=== PATIENT | male | born 1970 | race Caucasian/White ===

== ENCOUNTER 2025-02-15 10:28 | Outpatient (REF) | payer OTHER, SELFPAY ==
--- NOTE | ~2025-02-15 | XR_ITS ---
EXAMINATION: XR HAND 3 OR MORE VIEWS LEFT HISTORY: M79.642 - Pain in left hand COMPARISON: There are no prior studies available for comparison. FINDINGS: Three views of the left hand are submitted. Osseous mineralization is normal. There is a fracture of the distal tuft of the ring finger. An additional cortical defect is seen involving the head of the middle phalanx of the ring finger, likely posttraumatic in nature. The joint spaces are preserved. Soft tissue injury of the distal 4th finger is seen. There are soft tissue densities adjacent to the distal phalanx could represent foreign bodies. XR/XR hand LT min 3V IMPRESSION: Fracture of the distal tuft of the ring finger. Cortical defect involving the head of the middle phalanx of the ring finger which is also likely posttraumatic in nature. Possible soft tissue foreign bodies. Electronically signed by: Johnnie Delgadillo MD 02/15/2025 11:45 AM EDT
== END 2025-02-15 10:29 | disposition home or self-care (01) ==
LOC: HO.HOSX 10:28
DX: S62.635B Displaced fracture of distal phalanx of left ring finger, initial encounter for open fracture (principal); M79.642 Pain in left hand; W31.2XXA Contact with powered woodworking and forming machines, initial encounter
CPT/HCPCS: 73130

== ENCOUNTER 2025-02-15 10:28 | Outpatient (AMB) | payer OTHER, SELFPAY ==
--- NOTE | 2025-02-15 10:35 | A.OFFVIS_ITS ---
Vital Signs 02/15/25 10:37 Height 5 ft 6 in Weight 170 lb BMI 27.4 Handedness Right Intake Visit Reasons: UC f/u LT RF laceration no damage to nail Intake Note: Good is a 54 year old right hand dominant male, new patient, who presents today for an ED follow up evaluation status post left ring finger laceration with a saw, DOI: 02/09/25. Patient went in to a walk in stating he was using a cordless electric saw when it slipped out of his hands slicing through the lateral aspect of his left ring finger. Denies numbness, tingling. Patient is taking Tylenol with some relief. He is using a finger splint he bought at the store. Patient states the urgent care he went to did not do much for him besides letting him know he needed to see an orthopedist. 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 Neuro: Normal sensation of the tips of all digits of the left hand at this time Vascular: Cap refill brisk Pain: Tenderness to palpation noted of the distal phalanx and the distal aspect of the middle phalanx of the left ring finger in the area of laceration ROM: Patient is able to flex and extend at all joints of the left hand, particularly of the left ring finger Skin: There is a large, approximately 7-8 cm in length laceration noted of the ulnar aspect of the left ring finger extending into the tip of the left ring finger No sutures in place at this time No evidence of infection, however there is significant maceration General: No ecchymosis, erythema, or evidence of infection. Psych: Appears grossly normal Affect normal Attitude cooperative Office Procedures AMB Fracture Care Fracture Billing Code: Fracture Billing Code Results Reviewed Results Reviewed: X-rays obtained in the office today and independently reviewed by me, Jagdish Heath PA-C, demonstrate minimally displaced fracture of the distal phalanx of the left ring finger as well as an area of the distal aspect of the middle phalanx that appears as if the saw removed part of the bone. Assessment & Plan Assessment & Plan (1) Open fracture of phalanx of left ring finger: Code(s): S62.605B - Fracture of unspecified phalanx of left ring finger, initial encounter for open fracture Category: Medical Plan 1. Open fractures of distal and middle phalanx of left ring finger Date of injury 02/10/2025 Patient is educated about this injury Patient is educated about the typical treatment course, which in the case of nondisplaced open fractures of the fingers, typically involves antibiotic therapy, immobilization, and close follow-up to ensure no signs or symptoms of infection Patient is educated that there is unfortunately no wound closure indicated at this time, as his injury was almost one-week ago and it presents a significant infection risk to put sutures in at this time Patient should be changing his dressings daily, should not be getting the laceration sites wet Splint to be worn at all times Patient is sent a 10 day course of Augmentin for prevention of antibiotics Patient understands this in his amenable to this plan Follow-up next week with repeat x-rays for reassessment, sooner with any acute concerns Orders: Orders XR hand LT min 3V Today M79.642 - Pain in left hand Medications: New amoxicillin-pot clavulanate 875-125 mg 1 tab PO BID 20 tabs 0RF 10 days Coding Level of Care Code New Pt Level 3 (52424) Diagnoses Open fracture of phalanx of left ring finger S62.605B CPT Codes Fracture Care - Fracture Billing Code: Fracture Billing Code ([id number])
[2025-02-15 10:37] VITALS: BMI 27.4
--- OUTSIDE RECORDS SUMMARY | 2025-02-15 11:07 | XMS_ITS ---
Author Name [facility] Organization Unknown Care Team Organization Name Specialty Phone Email Start Date End Da maddy [facility] FRANNY RAMOS Primary Care 11/12/2022 02/24/20 24
--- OUTSIDE RECORDS SUMMARY | 2025-02-15 11:07 | XMS_ITS | Patient Health Record ---
Author Organization [facility] [address] Address [address] [place] [address] Care Team Providers Care Agent Licensing Clerk Name Role Phone CHINA URIARTE Unavailable [phone] Allergies No Known Allergies Reason For Referral No Information Medications Medication SIG (Take, Route, Frequency, Duration) Notes Start Date End Date Status lamoTRIgine 100 MG Oral; Duration: 30 Days Active buPROPion HCl ER (XL) 300 MG Oral; Duration: 30 Days Acti ve Lurasidone HCl 40 MG Oral; Duration: 30 Days Active Nystatin-Triamcinolone 287422-7.1 UNIT/GM APPLY CREAM EXTERNALLY TO AFFECTED AREA TWICE DAILY FOR 14 DAYS External; Duration: 14 Days Active Social History Tobacco Use: Social History Observation Description Date Details (start date - stop date) Never Smoker NA - NA Tobacco Use/Smoking Question Answer Notes Are you a nonsmoker Alcohol Screen (Audit-C) Question Answer Notes Did you have a drink containing alcohol in the p ast year? No Points 0 Interpretation Negative Problems Problem Type SNOMED Code ICD Code Onset Dates Problem Status W/U Status Risk Notes Problem Vitamin D deficiency (55336741) Vitamin D deficiency, unspecified (E55.9) Active confirmed Problem Hyperlipidaemia (46667192) Hyperlipidemia, unspecified hyperlipidemia type (E78.5) Active confirmed Problem Hypothyroidism (96392056) Hypothyroidism, unspecified type (E03.9) Active confirmed Problem Atrial fibrillation (63481779) PAF (paroxysmal atrial fibrillation) (I48.0) Active confirmed Plan Of Treatment Pending Test Test Name Order Date 25OH VITAMIN D 07/09/2023 CBC (COMPLETE BLOOD COUNT) 07/09/2023 COMPREHENSIVE METABOLIC PANEL 07/09/2023 HEMOGLOBIN A1C 07/09/2023 LIPID PANEL 07/09/2023 TSH 07/09/2023 URINALYSIS W/REFLEX CULTURE 07/09/2023 Insurance Providers Payer Name Payer Address Payer Phone Subscriber Number Group Number Insured Name Patient Relationship to Insured Coverage Start Date Coverage End Date Yadi [address] [place] [address] [id number] Good Kim Self - patient is the insured 2 Medical (General) History Medical History History ICD Code bipolar disorder hepatitis C
--- OUTSIDE RECORDS SUMMARY | 2025-02-15 11:07 | XMS_ITS | Clinical Summary ---
Author Organization 175 [facility] Address [address] [place] [address] Phone Care Team Providers Care Programming Specialist Name Role Phone Janes Navarro MD Primary Care Provider [phone] Allergies No known active allergies Medications bisacodyL (DULCOLAX) 5 mg EC tablet Take 2 tablets by mouth right before your first dose of liquid prep. 04/27/20 23 Active sucralfate (CARAFATE) 100 mg/mL suspension Take 10 mL by mouth 4 times daily (before meals and nightly). 11/04/19 19 Active tamsulosin (FLOMAX) 0.4 mg 24 hr capsule Take 0.4 mg by mouth daily. Take 30 mins after same meal every day. Active lamoTRIgine (LaMICtal) 150 mg tablet Take 150 mg by mouth daily. Active buPROPion (WELLBUTRIN) 100 mg tablet Take 100 mg by mouth daily. Active lurasidone (LATUDA) 20 mg tablet Take by mouth. Activ e ledipasvir-sof osbuvir 90-400 mg tablet Take 1 tablet by mouth 1 (one) time each day. 11/15/19 19 Active polyethylene glycol (Golytely) 236-22.74-6.74 -5.86 gram solution Take 4L by mouth once for one dose. May substitue any PEG. Starting at 6PM the night before your procedure drink 1 8oz glasses at your own pace until you complete half of the gallon. Finish 2nd half of the gallon 5 hours before your procedure. 4000 mL 05/19/20 24 Active bisacodyL (DULCOLAX) 5 mg EC tablet Take 2 tablets by mouth right before beginning bowel prep. See instructions provided by the office 2 tablet 05/19/20 24 Active gabapentin (NEURONTIN) 100 mg capsule Take 1 capsule (100 mg total) by mouth. 05/19/20 24 Active omeprazole (PriLOSEC) [address] capsule Take 1 capsule by mouth once daily 30 capsule 02/02/20 25 Active omeprazole (PriLOSEC) [address] capsule Take 1 capsule by mouth once daily 30 capsule 1 11/21/19 25 025 Discontinued Active Problems Problem Noted Date Diagnosed Date Gastroesophageal reflux disease without esophagi tis 10/02/2018 Vision abnormalities 10/02/2018 Bipolar affective disorder (CMS/HCC V24, CMS/HCC V28) 08/07/2018 Overview (04/23/2024): [facility] Chronic hepatitis C without hepatic coma (CMS/HCC V24, CMS/HCC V28) 08/07/2018 Overview (04/23/2024): Chronic Hepatitis C, Genotype 1B. Treatment started 11/14/18 with Harvoni 90-40 mg tabs. Take 1 tab daily for 12 weeks. End date 02/06/19. SVR achieved 05/08/19 Immunizations Name Administration Dates Next Due Hepatitis A-Hepatitis B Adul t (Twinrix) 18yo and older 05/08/2019,12/12/2018,09/26/2018 Surgical History Surgery Date Site/Laterality Comments OTHER SURGICAL HISTORY PROCEDURE: SC BIOPSY LIVER NEEDLE PERCUTANEOUS; COMMENT: in NASAL SEPTUM SURGERY PROCEDURE: SC REPAIR NASAL SEPTAL PERFORATIONS OTHER SURGICAL HISTORY 03/25/2015 PROCEDURE: SC ICAR CATH ABLATION DISCRETE MECHANISM ARRHYTHMIA; COMMENT: cardiac ablation, & 07/2013 ESOPHAGOGASTRODUODENOSCOPY Medical History Medical History Date Comments Bipolar affective disorder ( CMS/HCC V24, CMS/HCC V28) 08/07/2018 DX:Bipolar affective disorde r (HCC) Chronic hepatitis C without hepatic coma (CMS/HCC V24, CMS/HCC V28) 08/07/2018 DX:Chronic hepatitis C without hepatic coma (HCC) History of ventricular tachycardia 08/07/2018 DX:History of ventricular tachycardia; COMMENT: S/p cardiac ablation at [facility], surgeon was Dr Medina Hepatitis C Dysphagia GERD (gastroesophageal reflux disease) Bipolar 2 disorder ([facility]/HCC V24, [facility]/HCC V28) Family History Medical History Relation Name Comments No Known Problems Father No Known Problems Mother Relation Name Status Comments Father Alive Mother Alive Social History Tobacco Use Types Packs/Day Years Used Date Smoking Tobacco: Never Smokeless Tobacco: Never Alcohol Use Standard Drinks/Week Comments No 0 (1 standard drink = 0.6 oz pur e alcohol) Interpersonal Safety Answer Date Record ed Physical Abuse 06/02/2024 Verbal Abuse 06/02/2024 Sex and Gender Information Value Date Recorded Sex Assigned at Male 06/02/2024 11:11 AM EST Legal Sex Male 8:19 PM EST Gender Identity Male 06/02/2024 11:11 AM EST Sexual Orientation Straight 06/02/2024 11 :11 AM EST Obstetrics History Last Filed Vital Signs Vital Sign Reading Time Taken Comments Blood Pressure 133/90 06/02/2024 2:57 PM EST Pulse 71 06/02/2024 2:57 PM EST Temperature 35.8 C (96.4 F) 06/02/2024 1:32 PM EST Respiratory Rate 22 06/02/2024 2:57 PM EST Oxygen Saturation 100% 06/02/2024 2:57 PM EST Inhaled Oxygen Concentration - - Weight 74.4 kg (164 lb) 09/07/2024 2:58 PM EST Height 167.6 cm (5' 5.98 ) 09/07/2024 2:58 PM ES T Body Mass Index 26.48 09/07/2024 2:58 PM EST Plan of Treatment Upcoming Encounters Date Type Department Care Team (Late st Contact Info) Description 03/10/2025 2:30 PM EDT Office Visit Orthopedic Surgery [place] [id number] [phone] Rob Fisher, SANCHEZ [address] [address] Health Maintenance Due Date Last Done Comments DTaP,Tdap,and Td Vaccines (1 - Tdap) 1991 Pneumococcal Vaccine: 50+ Years (1 of 2 - PCV) 1991 Zoster Vaccines (1 of 2) 2022 Social Influencers of Health Screening 06/09/2022 COVID-19 Vaccine (1 - 2023-2 5 season) 2024 Depression Screening 07/08/2024 Influenza Vaccine (#1) 2025 Cholesterol Screening (Lipid Panel) 07/17/2029 07/17/2024, 08/27/2022 Colorectal Cancer Screening: Colonoscopy 06/02/2031 06/02/2024 HIV Screening Completed 08/27/2018 Hepatitis C Screening Completed 09/26/2018 Hepatitis A Vaccines Aged Out 05/08/2019, 12/12/2018, 09/26/2018 No longer eligible based on patient's age to complete this topic Hepatitis B Vaccines Completed 05/08/2019, 12/12/2018, 09/26/2018 HIB Vaccines Aged Out No longer eligi ble based on patient's age to complete this topic HPV Vaccines Aged Out No longer eligi ble based on patient's age to complete this topic IPV Vaccines Aged Out No longer eligi ble based on patient's age to complete this topic MMR Vaccines Aged Out No longer eligi ble based on patient's age to complete this topic Meningococcal ACWY Vaccine Aged Out N o longer eligible based on patient's age to complete this topic Meningococcal B Vaccine Aged Out No l onger eligible based on patient's age to complete this topic RSV Immunization Patients Under 20 months Aged Out No longer eligible b ased on patient's age to complete this topic Varicella Vaccines Aged Out No longer eligible based on patient's age to complete this topic Procedures Procedure Name Priority Date/Time Associated Diagnosis Comments LIPID PANEL WITH REFLEX TO DIRECT LDL Routine 07/17/2024 10:35 AM EST Drug therapy COLONOSCOPY Routine 06/02/2024 2:36 PM EST Dysphagia Colon cancer screening HEPATITIS C SCREENING Routine 09/26/2018 HIV SCREENING Routine 08/27/2018 from Last 3 Months or Most Recently Relevant to Health Maintenance Results * (ABNORMAL) Lipid panel with reflex to direct LDL (07/17/2024 10:35 AM EST) Cholesterol 214(H) 0 - 200 mg/dL LAB CHEMISTRY METHOD 07/17/2024 2:[address] [facility] Triglycerides 232(H) 0 - 150 mg/dL LAB CHEMISTRY METHOD 07/17/2024 2:31 PM [facility] HDL 42 >=40 mg/dL LAB CHEMISTRY METHOD 07/17/2024 2:31 PM [facility] LDL Calculated 126(H) 0 - 100 mg/dL LAB CHEMISTRY METHOD 07/17/2024 2:[address] [facility] VLDL Cholesterol Mark 46.4 mg/dL LAB CHEMISTRY METHOD 07/17/2024 2:31 PM [facility] Non HDL Chol. (LDL+VLDL) 172(H) <145 mg/dL LAB CHEMISTRY METHOD 07/17/2024 2:31 PM [facility] Chol/HDL Ratio 5.1(H) 0.0 - 4.4 LAB CHEMISTRY METHOD 07/17/2024 2:[address] [facility] Blood Venous blood specimen / Unknown Venipuncture / Unknown 07/17/2024 10:35 AM EST 07/17/2024 10:35 AM EST Eder Ron MD LAB BLOOD ORDERABLES Final R esult [facility] [address] [place] [address], * COLONOSCOPY Anesthesia - [facility] (06/02/2024 2:36 PM EST) Anatomical Region Laterality Modality Endoscopy 06/02/2024 2:1 1 PM EST Impressions 06/02/2024 2:36 PM EST - One 5 mm polyp in the descending colon, removed with a cold snare. Resected and retrieved. - The examination was otherwise normal on direct and retroflexion views. Recommendation: - - Discharge patient to home. - High fiber diet. - Continue present medications. - Await pathology results. - Repeat colonoscopy for surveillance based on pathology results. Narrative 06/02/2024 2:36 PM EST [facility] GI Patient Name: Good Kim Procedure Date: 06/02/2024 2:11 PM Date of : 1970 Age: 54 Gender: Male Note Status: Finalized Attending MD: Shannon Flores DO, [id number] Procedure Date No Time: 06/02/2024 Procedure: Colonoscopy Indications: Screening for colorectal malignant neoplasm Providers: Shannon Flores DO Referring MD: Janes Navarro MD Medicines: Monitored Anesthesia Care Complications: No immediate complications. Estimated blood loss: Minimal. Estimated Blood Loss: Estimated blood loss was minimal. Procedure: Pre-Anesthesia Assessment: - - Prior to the procedure, a History and Physical was performed, and patient medications and allergies were reviewed. The patient is competent. The risks and benefits of the procedure and the sedation options and risks were discussed with the patient. All questions were answered and informed consent was obtained. Patient identification and proposed procedure were verified by the physician, the nurse, the anesthesiologist, the bander hand and the dental technician in the pre-procedure area in the endoscopy suite. Mental Status Examination: alert and oriented. Airway Examination: normal oropharyngeal airway and neck mobility. Respiratory Examination: clear to auscultation. CV Examination: normal. Prophylactic Antibiotics: The patient does not require prophylactic antibiotics. Prior Anticoagulants: The patient has taken no anticoagulant or antiplatelet agents. ASA Grade Assessment: III - A patient with severe systemic disease. After reviewing the risks and benefits, the patient was deemed in satisfactory condition to undergo the procedure. The anesthesia plan was to use monitored anesthesia care (MAC). Immediately prior to administration of medications, the patient was re-assessed for adequacy to receive sedatives. The heart rate, respiratory rate, oxygen saturations, blood pressure, adequacy of pulmonary ventilation, and response to care were monitored throughout the procedure. The physical status of the patient was re-assessed after the procedure. - - Prior to the procedure, a History and Physical was performed, and patient medications and allergies were reviewed. The patient is competent. The risks and benefits of the procedure and the sedation options and risks were discussed with the patient. All questions were answered and informed consent was obtained. Patient identification and proposed procedure were verified by the physician, the nurse, the anesthesiologist, the bander hand and the dental technician in the pre-procedure area in the endoscopy suite. Mental Status Examination: alert and oriented. Airway Examination: normal oropharyngeal airway and neck mobility. Respiratory Examination: clear to auscultation. CV Examination: normal. Prophylactic Antibiotics: The patient does not require prophylactic antibiotics. Prior Anticoagulants: The patient has taken no anticoagulant or antiplatelet agents. ASA Grade Assessment: II - A patient with severe systemic disease. After reviewing the risks and benefits, the patient was deemed in satisfactory condition to undergo the procedure. The anesthesia plan was to use monitored anesthesia care (MAC). Immediately prior to administration of medications, the patient was re-assessed for adequacy to receive sedatives. The heart rate, respiratory rate, oxygen saturations, blood pressure, adequacy of pulmonary ventilation, and response to care were monitored throughout the procedure. The physical status of the patient was re-assessed after the procedure. After I obtained informed consent, the scope was passed under direct vision. Throughout the procedure, the patient's blood pressure, pulse, and oxygen saturations were monitored continuously.The Colonoscope was introduced through the anus and advanced to the cecum, identified by appendiceal orifice and ileocecal valve. The colonoscopy was performed without difficulty. The patient tolerated the procedure well. The quality of the bowel preparation was good. Findings: The perianal and digital rectal examinations were normal. A 5 mm polyp was found in the descending colon. The polyp was sessile. The polyp was removed with a cold snare. Resection and retrieval were complete. Estimated blood loss was minimal. The exam was otherwise without abnormality on direct and retroflexion views. Procedure Code(s): --- Professional --- 35605, Colonoscopy, flexible; with removal of tumor(s), polyp(s), or other lesion(s) by snare technique Diagnosis Code(s): --- Professional --- Z12.11, Encounter for screening for malignant neoplasm of colon D12.4, Benign neoplasm of descending colon CPT copyright 2020 [employer]. All rights reserved. The codes documented in this report are preliminary and upon occup ther review may be revised to meet current compliance requirements. SHANNON Flores DO 06/02/2024 2:36:33 PM This report has been signed electronically.Shannon Flores DO Number of Addenda: 0 Note Initiated On: 06/02/2024 2:11 PM Scope Withdrawal Time: 0 hours 6 minutes 12 seconds Scope In: 2:25:23 PM Scope Out: 2:35:02 PM Endoscopy Department at [facility] - [address] [place] [id number] Procedure Note Shannon Flores DO - 06/02/2024 [facility] GI Patient Name: Good Kim Procedure Date: 06/02/2024 2:11 PM Date of : 1970 Age: 54 Gender: Male Note Status: Finalized Attending MD: Shannon Flores DO, [id number] Procedure Date No Time: 06/02/2024 Procedure: Colonoscopy Indications: Screening for colorectal malignant neoplasm Providers: Shannon Flores DO Referring MD: Janes Navarro MD Medicines: Monitored Anesthesia Care Complications: No immediate complications. Estimated blood loss: Minimal. Estimated Blood Loss: Estimated blood loss was minimal. Procedure: Pre-Anesthesia Assessment: - - Prior to the procedure, a History and Physicalwas performed, and patient medications and allergieswere reviewed. The patient is competent. The risks and benefits of the procedure and the sedation optionsand risks were discussed with the patient. Allquestions were answered and informed consent was obtained. Patient identification and proposed procedure were verified by the physician, the nurse, the anesthesiologist, the bander hand and thetechnician in the pre-procedure area in the endoscopy suite. Mental Status Examination: alert and oriented.Airway Examination: normal oropharyngeal airway and neck mobility. Respiratory Examination: clear to auscultation. CV Examination: normal. Prophylactic Antibiotics: The patient does not requireprophylactic antibiotics. Prior Anticoagulants: The patient has taken no anticoagulant or antiplatelet agents. ASA Grade Assessment: III - A patient with severesystemic disease. After reviewing the risks and benefits,the patient was deemed in satisfactory condition to undergo the procedure. The anesthesia plan was touse monitored anesthesia care (MAC). Immediately priorto administration of medications, the patient was re-assessed for adequacy to receive sedatives. The heart rate, respiratory rate, oxygen saturations, blood pressure, adequacy of pulmonary ventilation,and response to care were monitored throughout the procedure. The physical status of the patient was re-assessed after the procedure. - - Prior to the procedure, a History and Physicalwas performed, and patient medications and allergieswere reviewed. The patient is competent. The risks and benefits of the procedure and the sedation optionsand risks were discussed with the patient. Allquestions were answered and informed consent was obtained. Patient identification and proposed procedure were verified by the physician, the nurse, the anesthesiologist, the bander hand and thetechnician in the pre-procedure area in the endoscopy suite. Mental Status Examination: alert and oriented.Airway Examination: normal oropharyngeal airway and neck mobility. Respiratory Examination: clear to auscultation. CV Examination: normal. Prophylactic Antibiotics: The patient does not requireprophylactic antibiotics. Prior Anticoagulants: The patient has taken no anticoagulant or antiplatelet agents. ASA Grade Assessment: II - A patient with severesystemic disease. After reviewing the risks and benefits,the patient was deemed in satisfactory condition to undergo the procedure. The anesthesia plan was touse monitored anesthesia care (MAC). Immediately priorto administration of medications, the patient was re-assessed for adequacy to receive sedatives. The heart rate, respiratory rate, oxygen saturations, blood pressure, adequacy of pulmonary ventilation,and response to care were monitored throughout the procedure. The physical status of the patient was re-assessed after the procedure. After I obtained informed consent, the scope was passed under direct vision. Throughout theprocedure, the patient's blood pressure, pulse, and oxygen saturations were monitored continuously.The Colonoscope was introduced through the anus and advanced to the cecum, identified by appendiceal orifice and ileocecal valve. The colonoscopy was performed without difficulty. The patient tolerated the procedure well. The quality of the bowel preparation was good. Findings: The perianal and digital rectal examinations were normal. A 5 mm polyp was found in the descending colon. The polyp was sessile. The polyp was removed with acold snare. Resection and retrieval were complete. Estimated blood loss was minimal. The exam was otherwise without abnormality ondirect and retroflexion views. Procedure Code(s): --- Professional --- 29989, Colonoscopy, flexible; with removal of tumor(s), polyp(s), or other lesion(s) by snare technique Diagnosis Code(s): --- Professional --- Z12.11, Encounter for screening for malignantneoplasm of colon D12.4, Benign neoplasm of descending colon CPT copyright 2020 [employer]. All rights reserved. The codes documented in this report are preliminary and upon occup ther reviewmay be revised to meet current compliance requirements. SHANNON Flores DO 06/02/2024 2:36:33 PM This report has been signed electronically.Shannon Flores DO Number of Addenda: 0 Note Initiated On: 06/02/2024 2:11 PM Scope Withdrawal Time: 0 hours 6 minutes 12 seconds Scope In: 2:25:23 PM Scope Out: 2:35:02 PM Endoscopy Department at [facility] - [address] [place] [id number] IMPRESSION: - One 5 mm polyp in the descending colon, removed with a cold snare. Resected and retrieved. - The examination was otherwise normal on directand retroflexion views. Recommendation: - - Discharge patient to home. - High fiber diet. - Continue present medications. - Await pathology results. - Repeat colonoscopy for surveillance based on pathology results. Shannon Flores DO GI~PROCEDURE ORDERABLES Final Re sult * Hepatitis C Screening (09/26/2018) Hepatitis C Screening abstracted Historical Provider HEALTH MAINTENANCE Final Result * HIV Screening (08/27/2018) HIV Screening abstracted Historical Provider HEALTH MAINTENANCE Final Result from Last 3 Months or Most Recently Relevant to Health Maintenance Insurance [employer] Care Teams Programming Specialist Relationship Specialty Start Date End Date Janes Navarro MD [address] [address] PCP - General Internal Medicine 07/11/18
== END 2025-02-15 11:41 | disposition home or self-care (01) ==
LOC: HO.HOS 10:29
DX: S62.635B Displaced fracture of distal phalanx of left ring finger, initial encounter for open fracture (principal)
CPT/HCPCS: 99203

== ENCOUNTER → 2025-02-15 10:56 | Outpatient (BNV) | payer OTHER, SELFPAY | PROVIDERS: Visit Provider Radiology Diagnostic Radiology | DX: M79.642 Pain in left hand (principal) | CPT/HCPCS: 73130 ==

== ENCOUNTER 2025-02-23 08:17 | Outpatient (AMB) | payer OTHER, SELFPAY ==
[2025-02-23 08:35] VITALS: BMI 27.4
--- NOTE | 2025-02-23 08:35 | A.OFFVIS_ITS ---
Vital Signs 02/23/25 08:35 Height 5 ft 6 in Weight 170 lb BMI 27.4 Intake Visit Reasons: UC f/u LT RF laceration no damage to nail w/ XR Intake Note: Good is a 54 year old right hand dominant male who presents today for a wound check status post left ring finger laceration, DOI: 02/09/25. At his last visit, patient was informed he should be changing his dressings daily, keeping his laceration clean and dry. He was advised to wear splint at all times and to start antibiotic treatment. Today, patient reports he continues wearing the finger splint and taking antibiotics as prescribed. Denies numbness or tingling. Allergies No Known Allergies Allergy (Verified 02/23/25 08:40) HPI HPI UC f/u LT RF laceration no damage to nail w/ XR: Details: Good is a 54 year old right hand dominant male who presents today for a wound check status post left ring finger laceration, DOI: 02/09/25. At his last visit, patient was informed he should be changing his dressings daily, keeping his laceration clean and dry. He was advised to wear splint at all times and to start antibiotic treatment. Today, patient reports he continues wearing the finger splint and taking antibiotics as prescribed. Denies numbness or tingling. 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 Neuro: Normal sensation of the tips of all digits of the left hand at this time Vascular: Cap refill brisk Pain: Tenderness to palpation noted of the distal phalanx and the distal aspect of the middle phalanx of the left ring finger in the area of laceration ROM: Patient is able to flex and extend at all joints of the left hand, particularly of the left ring finger Skin: There is a large, approximately 7-8 cm in length laceration noted of the ulnar aspect of the left ring finger extending into the tip of the left ring finger No sutures in place at this time No evidence of infection, however there is significant maceration General: No ecchymosis, erythema, or evidence of infection. Psych: Appears grossly normal Affect normal Attitude cooperative Assessment & Plan Assessment & Plan (1) Open fracture of phalanx of left ring finger: Code(s): S62.605B - Fracture of unspecified phalanx of left ring finger, initial e ncounter for open fracture Category: Medical Plan 1. Open fractures of distal and middle phalanx of left ring finger Date of injury 02/10/2025 Patient is educated about this injury Patient is educated about the typical treatment course, which in the case of nondisplaced open fractures of the fingers, typically involves antibiotic therapy, immobilization, and close follow-up to ensure no signs or symptoms of infectione Patient should be changing his dressings daily, may wash laceration with soap and water in the sink of the shower, no under water Splint to be worn at all times Finish current course of antibiotics, no further therapy indicated at this time Patient understands this in his amenable to this plan Follow-up in 2 weeks with repeat x-rays for reassessment, sooner with any acute concerns Coding Level of Care Code Global (73383) Diagnoses Open fracture of phalanx of left ring finger S62.605B
--- OUTSIDE RECORDS SUMMARY | 2025-02-23 08:55 | XMS_ITS | Patient Health Record ---
Author Organization [facility] [address] Address [address] [place] [address] Care Team Providers Care Master Pilot Name Role Phone CHINA URIARTE Unavailable [phone] Allergies No Known Allergies Reason For Referral No Information Medications Medication SIG (Take, Route, Frequency, Duration) Notes Start Date End Date Status lamoTRIgine 100 MG Oral; Duration: 30 Days Active buPROPion HCl ER (XL) 300 MG Oral; Duration: 30 Days Acti ve Lurasidone HCl 40 MG Oral; Duration: 30 Days Active Nystatin-Triamcinolone 573623-9.1 UNIT/GM APPLY CREAM EXTERNALLY TO AFFECTED AREA [...] Status Risk Notes Problem Vitamin D deficiency (55271052) Vitamin D deficiency, unspecified (E55.9) Active confirmed Problem Hyperlipidaemia (90319363) Hyperlipidemia, unspecified hyperlipidemia type (E78.5) Active confirmed Problem Hypothyroidism (44439782) Hypothyroidism, unspecified type (E03.9) Active confirmed Problem Atrial fibrillation (70007805) PAF (paroxysmal atrial fibrillation) (I48.0) Active confirmed [...] Date Coverage End Date [employer] [address] [place] [address] [id number] Good Kim Self - patient is the insured 2 Medical (General) History Medical History History ICD Code bipolar disorder hepatitis C
--- OUTSIDE RECORDS SUMMARY | 2025-02-23 08:55 | XMS_ITS | Clinical Summary ---
Author Organization 175 [facility] Address [address] [place] [address] Phone Care Team Providers Care Commercial Shrimping Captain Name Role Phone Janes Navarro MD Primary Care Provider [phone] Allergies No known active allergies Medications bisacodyL [...] (04/23/2024): [facility] with [facility] Chronic hepatitis C without hepatic coma [...] Date Site/Laterality Comments OTHER SURGICAL HISTORY PROCEDURE: [place] BIOPSY LIVER NEEDLE PERCUTANEOUS; COMMENT: in NASAL SEPTUM SURGERY PROCEDURE: [place] REPAIR NASAL SEPTAL PERFORATIONS OTHER SURGICAL HISTORY 03/25/2015 PROCEDURE: [place] ICAR CATH ABLATION DISCRETE MECHANISM ARRHYTHMIA; COMMENT: [...] ventricular tachycardia; COMMENT: S/p cardiac ablation at [facility] X 2, surgeon was Dr Medina Hepatitis C Dysphagia GERD (gastroesophageal reflux disease) Bipolar 2 disorder ([facility]/HCC V24, [facility]/HCC V28) Family History Medical History Relation Name [...] PM EDT Office Visit Orthopedic Surgery - [place] [address] [address] Rob Fisher, SANCHEZ [address] [address] Health Maintenance Due Date Last Done Comments [...] LAB CHEMISTRY METHOD 07/17/2024 2:31 PM EST [facility] Triglycerides 232(H) 0 - 150 mg/dL LAB CHEMISTRY METHOD 07/17/2024 2:31 PM [facility] HDL 42 >=40 mg/dL LAB CHEMISTRY METHOD 07/17/2024 2:31 PM [facility] LDL Calculated 126(H) 0 - 100 mg/dL LAB CHEMISTRY METHOD 07/17/2024 2:31 PM EST [facility] VLDL Cholesterol Mark 46.4 mg/dL LAB CHEMISTRY METHOD 07/17/2024 2:31 PM [facility] Non HDL Chol. (LDL+VLDL) 172(H) <145 mg/dL LAB CHEMISTRY METHOD 07/17/2024 2:31 PM [facility] Chol/HDL Ratio 5.1(H) 0.0 - 4.4 LAB CHEMISTRY METHOD 07/17/2024 2:31 PM EST [facility] Blood Venous blood specimen / Unknown Venipuncture / Unknown 07/17/2024 10:35 AM EST 07/17/2024 10:35 AM EST Eder Ron MD LAB BLOOD ORDERABLES Final R esult [facility] [address] [place] [address], * COLONOSCOPY Anesthesia - [facility]; [facility] ENDOSCOPY (06/02/2024 2:36 PM EST) Anatomical Region [...] pathology results. Narrative 06/02/2024 2:36 PM EST [facility] Patient Name: Good Kim Procedure Date: 06/02/2024 2:11 PM Date of : 1970 Age: 54 Gender: Male Note Status: Finalized Attending MD: Shannon Flores DO, [id number] Procedure Date No Time: 06/02/2024 Procedure: Colonoscopy [...] the physician, the nurse, the anesthesiologist, the senior sourcing manager and the agriculture laboratory technician in the pre-procedure area in the [...] the physician, the nurse, the anesthesiologist, the senior sourcing manager and the agriculture laboratory technician in the pre-procedure area in the [...] retroflexion views. Procedure Code(s): --- Professional --- 70733, Colonoscopy, flexible; with removal of tumor(s), polyp(s), or other lesion(s) by snare technique Diagnosis Code(s): --- Professional --- Z12.11, Encounter for screening for malignant neoplasm of colon D12.4, Benign neoplasm of descending colon CPT copyright 2020 [employer]. All rights reserved. The codes documented in this report are preliminary and upon costing manager review may be revised to meet current compliance requirements. SHANNON Flores DO 06/02/2024 2:36:33 PM This report has been signed electronically.Shannon Flores DO Number of Addenda: 0 Note Initiated On: 06/02/2024 2:11 PM Scope Withdrawal Time: 0 hours 6 minutes 12 seconds Scope In: 2:25:23 PM Scope Out: 2:35:02 PM Endoscopy Department at [facility] - [address] [place] [phone] Procedure Note Shannon Flores DO - 06/02/2024 [facility] Patient Name: Good Kim Procedure Date: 06/02/2024 2:11 PM Date of : 1970 Age: 54 Gender: Male Note Status: Finalized Attending MD: Shannon Flores DO, [id number] Procedure Date No Time: 06/02/2024 Procedure: Colonoscopy [...] the physician, the nurse, the anesthesiologist, the senior sourcing manager and thetechnician in the pre-procedure area in [...] the physician, the nurse, the anesthesiologist, the senior sourcing manager and thetechnician in the pre-procedure area in [...] retroflexion views. Procedure Code(s): --- Professional --- 37976, Colonoscopy, flexible; with removal of tumor(s), polyp(s), or other lesion(s) by snare technique Diagnosis Code(s): --- Professional --- Z12.11, Encounter for screening for malignantneoplasm of colon D12.4, Benign neoplasm of descending colon CPT copyright 2020 [employer]. All rights reserved. The codes documented in this report are preliminary and upon costing manager reviewmay be revised to meet current compliance requirements. SHANNON Flores DO 06/02/2024 2:36:33 PM This report has been signed electronically.Shannon Flores DO Number of Addenda: 0 Note Initiated On: 06/02/2024 2:11 PM Scope Withdrawal Time: 0 hours 6 minutes 12 seconds Scope In: 2:25:23 PM Scope Out: 2:35:02 PM Endoscopy Department at [facility] - [address] [place] [phone] IMPRESSION: - One 5 mm polyp in [...] to Health Maintenance Insurance [employer] Care Teams Commercial Shrimping Captain Relationship Specialty Start Date End Date Janes Navarro MD [address] [address] PCP - General Internal Medicine 07/11/18
== END 2025-02-23 09:19 | disposition home or self-care (01) ==
LOC: HO.HOS 08:18
DX: S62.635B Displaced fracture of distal phalanx of left ring finger, initial encounter for open fracture (principal)
CPT/HCPCS: 99213

== ENCOUNTER 2025-03-09 10:51 | Outpatient (REF) | payer OTHER, SELFPAY ==
--- NOTE | ~2025-03-09 | XR_ITS ---
CLINICAL HISTORY: M79.642 - Pain in left hand --- Additional Notes or Special Instructions: Attn RF 4 view left hand Comparison: DX/SR - XR HAND 3 OR MORE VIEWS LEFT - 02/15/25 10:56 EDT Findings: Redemonstration of comminuted fracture of the distal tuft of the 4th distal phalanx. Again, there are multiple calcific densities in the soft tissues of the 4th distal digit. There is soft tissue swelling of the 4th distal digit. Similar appearance of erosion along the ulnar aspect of the 4th middle phalanx. Findings may be posttraumatic or due to infection/osteomyelitis. IMPRESSION: Redemonstration of comminuted fracture of the distal tuft of the 4th distal phalanx. Again, there are multiple calcific densities in the soft tissues of the 4th distal digit. There is soft tissue swelling of the 4th distal digit. Similar appearance of erosion along the ulnar aspect of the 4th middle phalanx. Findings may be posttraumatic or due to infection/osteomyelitis. This document has been electronically signed by: Faustino Portillo DO on 03/10/2025 09:43:13
--- OUTSIDE RECORDS SUMMARY | 2025-03-09 12:23 | XMS_ITS | Clinical Summary ---
Author Organization 175 [facility] Address [address] [place] [address] Phone Care Team Providers Care Junior Bookkeeper Name Role Phone Janes Navarro MD Primary Care Provider Allergies No known active allergies Medications bisacodyL [...] capsule by mouth once daily 30 capsule 03/09/20 25 Active omeprazole (PriLOSEC) [address] capsule Take 1 capsule by mouth once daily 30 capsule 02/02/20 25 025 Discontinued Active Problems Problem Noted Date Diagnosed Date Gastroesophageal reflux disease without esophagi tis 10/02/2018 Vision abnormalities 10/02/2018 Bipolar affective disorder (CMS/HCC V24, CMS/HCC V28) 08/07/2018 Overview (04/23/2024): [facility] in [facility] Chronic hepatitis C without hepatic coma [...] Date Site/Laterality Comments OTHER SURGICAL HISTORY PROCEDURE: [place] BIOPSY LIVER NEEDLE PERCUTANEOUS; COMMENT: in NASAL SEPTUM SURGERY PROCEDURE: [place] REPAIR NASAL SEPTAL PERFORATIONS OTHER SURGICAL HISTORY 03/25/2015 PROCEDURE: [place] ICAR CATH ABLATION DISCRETE MECHANISM ARRHYTHMIA; COMMENT: [...] ventricular tachycardia; COMMENT: S/p cardiac ablation at [facility] X 2, surgeon was Dr Medina Hepatitis C Dysphagia GERD (gastroesophageal reflux disease) Bipolar 2 disorder ([facility] V24, [facility] V28) Family History Medical History Relation Name [...] PM EDT Office Visit Orthopedic Surgery - [address] [address] Rob Fisher DPM [address] [place] [address] Health Maintenance Due Date Last Done Comments DTaP,Tdap,and Td Vaccines (1 - Tdap) 1991 Pneumococcal Vaccine: 50+ Years (1 of 2 - PCV) 1991 Zoster Vaccines (1 of 2) 2022 Social Influencers of Health Screening 06/09/2022 Depression Screening 07/08/2024 COVID-19 Vaccine (1 - 2023-2 5 season) 2025 Influenza Vaccine (#1) 2025 Cholesterol Screening (Lipid [...] LAB CHEMISTRY METHOD 07/17/2024 2:31 PM EST [facility] Triglycerides 232(H) 0 - 150 mg/dL LAB CHEMISTRY METHOD 07/17/2024 2:31 PM EST [facility] HDL 42 >=40 mg/dL LAB CHEMISTRY METHOD 07/17/2024 2:31 PM EST [facility] LDL Calculated 126(H) 0 - 100 mg/dL LAB CHEMISTRY METHOD 07/17/2024 2:31 PM EST [facility] VLDL Cholesterol Mark 46.4 mg/dL LAB CHEMISTRY METHOD 07/17/2024 2:31 PM EST [facility] Non HDL Chol. (LDL+VLDL) 172(H) <145 mg/dL LAB CHEMISTRY METHOD 07/17/2024 2:31 PM EST [facility] Chol/HDL Ratio 5.1(H) 0.0 - 4.4 LAB CHEMISTRY METHOD 07/17/2024 2:31 PM EST [facility] Blood Venous blood specimen / Unknown Venipuncture / Unknown 07/17/2024 10:35 AM EST 07/17/2024 10:35 AM EST us Eder Ron MD LAB BLOOD ORDERABLES Final R esult [facility] [address] [place] [address], * COLONOSCOPY Anesthesia - [facility]; [facility] ENDOSCOPY (06/02/2024 2:36 PM EST) Anatomical Region Laterality Modality Endoscopy 06/02/2024 2:11 PM EST Impressions 06/02/2024 2:36 PM EST [...] pathology results. Narrative 06/02/2024 2:[address] [facility] Patient Name: Good Kim Procedure Date: 06/02/2024 2:11 PM Date of : 1970 Age: 54 Gender: Male Note Status: Finalized Attending MD: Shannon Flores DO, [id number] Procedure Date No Time: 06/02/2024 Procedure: Colonoscopy [...] the physician, the nurse, the anesthesiologist, the wire galvanizer and the remediation technician in the pre-procedure area in the [...] the physician, the nurse, the anesthesiologist, the wire galvanizer and the remediation technician in the pre-procedure area in the [...] retroflexion views. Procedure Code(s): --- Professional --- 40679, Colonoscopy, flexible; with removal of tumor(s), polyp(s), or other lesion(s) by snare technique Diagnosis Code(s): --- Professional --- Z12.11, Encounter for screening for malignant neoplasm of colon D12.4, Benign neoplasm of descending colon CPT copyright 2020 [employer]. All rights reserved. The codes documented in this report are preliminary and upon script editor review may be revised to meet current compliance requirements. SHANNON Flores DO 06/02/2024 2:36:33 PM This report has been signed electronically.Shannon Flores DO Number of Addenda: 0 Note Initiated On: 06/02/2024 2:11 PM Scope Withdrawal Time: 0 hours 6 minutes 12 seconds Scope In: 2:25:23 PM Scope Out: 2:35:02 PM Endoscopy Department at [facility] - [address] [place] [phone] Procedure Note Shannon Flores DO - 06/02/2024 [facility] Patient Name: Good Kim Procedure Date: 06/02/2024 2:11 PM Date of : 1970 Age: 54 Gender: Male Note Status: Finalized Attending MD: Shannon Flores DO, [id number] Procedure Date No Time: 06/02/2024 Procedure: Colonoscopy [...] the physician, the nurse, the anesthesiologist, the wire galvanizer and thetechnician in the pre-procedure area in [...] the physician, the nurse, the anesthesiologist, the wire galvanizer and thetechnician in the pre-procedure area in [...] retroflexion views. Procedure Code(s): --- Professional --- 91903, Colonoscopy, flexible; with removal of tumor(s), polyp(s), or other lesion(s) by snare technique Diagnosis Code(s): --- Professional --- Z12.11, Encounter for screening for malignantneoplasm of colon D12.4, Benign neoplasm of descending colon CPT copyright 2020 [employer]. All rights reserved. The codes documented in this report are preliminary and upon script editor reviewmay be revised to meet current compliance requirements. SHANNON Flores DO 06/02/2024 2:36:33 PM This report has been signed electronically.Shannon Flores DO Number of Addenda: 0 Note Initiated On: 06/02/2024 2:11 PM Scope Withdrawal Time: 0 hours 6 minutes 12 seconds Scope In: 2:25:23 PM Scope Out: 2:35:02 PM Endoscopy Department at [facility] - [address] [place] [address] IMPRESSION: - One 5 mm polyp in [...] to Health Maintenance Insurance [employer] Care Teams Junior Bookkeeper Relationship Specialty Start Date End Date Janes Navarro MD [address] [place] [address] [address] [place] [address] PCP - General Internal Medicine 07/11/18
== END 2025-03-09 10:52 | disposition home or self-care (01) ==
LOC: HO.HOSX 10:51
DX: S62.635D Displaced fracture of distal phalanx of left ring finger, subsequent encounter for fracture with routine healing (principal); S62.625D Displaced fracture of middle phalanx of left ring finger, subsequent encounter for fracture with routine healing; X58.XXXD Exposure to other specified factors, subsequent encounter
CPT/HCPCS: 73130

== ENCOUNTER 2025-03-09 13:05 | Outpatient (AMB) | payer OTHER, SELFPAY ==
[2025-03-09 13:14] VITALS: BMI 27.4
--- NOTE | 2025-03-09 13:14 | MHC.OFFVIS ---
Vital Signs 03/09/25 13:14 Height 5 ft 6 in Weight 170 lb BMI 27.4 Intake Visit Reasons: OV: LT RF laceration, DOI: 02/09/25 Intake Note: Good is a 54 year old right hand dominant male who presents today for a wound check status post left ring finger laceration, DOI: 02/09/25. At his last visit, he was advised to wear finger splint at all times and to continue taking his antibiotics. Patient reports today he has completed his antibiotics. No concerns today. Allergies No Known Allergies Allergy (Verified 03/09/25 13:16) HPI HPI OV: LT RF laceration, DOI: 02/09/25: Details: Good is a 54 year old right hand dominant male who presents today for a wound check status post left ring finger laceration, DOI: 02/09/25. At his last visit, he was advised to wear finger splint at all times and to continue taking his antibiotics. Patient reports today he has completed his antibiotics. No concerns today. 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 Neuro: Normal sensation of the tips of all digits of the left hand at this time Vascular: Cap refill brisk Pain: Tenderness to palpation noted of the distal phalanx and the distal aspect of the middle phalanx of the left ring finger in the area of laceration ROM: Patient is able to flex and extend at all joints of the left hand, particularly of the left ring finger Skin: There is a large, approximately 7-8 cm in length laceration noted of the ulnar aspect of the left ring finger extending into the tip of the left ring finger, healing quite well No sutures in place at this time No evidence of infection, however there is significant maceration General: No ecchymosis, erythema, or evidence of infection. Psych: Appears grossly normal Affect normal Attitude cooperative Results Reviewed Results Reviewed: X-rays obtained in the office today and independently reviewed by me, Jagdish Kumar PA-C, demonstrate minimally displaced fracture of the distal phalanx of the left ring finger as well as an area of the distal aspect of the middle phalanx that appears as if the saw removed part of the bone. There is evidence of interval bony healing. Assessment & Plan Assessment & Plan (1) Open fracture of phalanx of left ring finger: Code(s): S62.605B - Fracture of unspecified phalanx of left ring finger, initial encounter for open fracture Category: Medical Plan 1. Open fractures of distal and middle phalanx of left ring finger Date of injury 02/10/2025 Patient is educated about this injury Patient is educated about the typical treatment course, which in the case of nondisplaced open fractures of the fingers, typically involves antibiotic therapy, immobilization, and close follow-up to ensure no signs or symptoms of infectione Patient should be changing his dressings daily, may wash laceration with soap and water in the sink of the shower, no under water Splint to be worn with daytime activities Finish current course of antibiotics, no further therapy indicated at this time Patient understands this in his amenable to this plan Follow-up in 4 weeks with repeat x-rays for reassessment, sooner with any acute concerns Orders: Orders XR hand LT min 3V 03/09/25 M79.642 - Pain in left hand Coding Level of Care Code Global (37412) Diagnoses Open fracture of phalanx of left ring finger S62.605B
== END 2025-03-09 13:51 | disposition home or self-care (01) ==
LOC: HO.HOS 13:06
DX: S62.605B Fracture of unspecified phalanx of left ring finger, initial encounter for open fracture (principal)
CPT/HCPCS: 99213

== ENCOUNTER → 2025-03-09 13:08 | Outpatient (BNV) | payer OTHER, SELFPAY | PROVIDERS: Visit Provider Family Medicine | DX: M65.242 Calcific tendinitis, left hand (principal) | CPT/HCPCS: 73130 ==

== ENCOUNTER 2025-04-09 13:49 | Outpatient (AMB) | payer OTHER, SELFPAY ==
--- NOTE | 2025-04-09 13:50 | A.OFFVIS_ITS ---
Vital Signs 04/09/25 13:53 Height 5 ft 6 in Weight 170 lb BMI 27.4 Intake Visit Reasons: OV- LT RF laceration, DOI: 02/09/25 Intake Note: Good is a 55 year old right hand dominant male who presents today for follow up status post Left Ring Finger Distal and Middle Phalanx Fracture, DOI: 02/09/25. At his last visit he was advised to change dressings daily, washing lac eration with soap and water. He was further advised to wear his finger splint with daytime activities and to finish his antibiotics. Patient reports sensitivity at laceration, he also complains of numbness in his finger and pain at the tip of his finger. Allergies No Known Allergies Allergy (Verified 04/09/25 13:54) HPI HPI OV- LT RF laceration, DOI: 02/09/25: Details: Good is a 55 year old right hand dominant male who presents today for follow up status post Left Ring Finger Distal and Middle Phalanx Fracture, DOI: 02/09/25. At his last visit he was advised to change dressings daily, washing laceration with soap and water. He was further advised to wear his finger splint with daytime activities and to finish his antibiotics. Patient reports sensitivity at laceration, he also complains of numbness in his finger and pain at the tip of his finger. 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 Neuro: Normal sensation of the tips of all digits of the left hand at this time Vascular: Cap refill brisk Pain: Tenderness to palpation noted of the distal phalanx and the distal aspect of the middle phalanx of the left ring finger in the area of laceration ROM: Patient is able to flex and extend at all joints of the left hand, particularly of the left ring finger Skin: There is a large, approximately 7-8 cm in length laceration noted of the ulnar aspect of the left ring finger extending into the tip of the left ring finger, heahealedling quite well No sutures in place at this time No evidence of infection General: No ecchymosis, erythema, or evidence of infection. Psych: Appears grossly normal Affect normal Attitude cooperative Results Reviewed Results Reviewed: X-rays obtained in the office today and independently reviewed by me, Jagdish Heath PA-C, demonstrate well healing fractures of the middle and distal phalanx of the left ring finger. Assessment & Plan Assessment & Plan (1) Open fracture of phalanx of left ring finger: Code(s): S62.605B - Fracture of unspecified phalanx of left ring finger, initial encounter for open fracture Category: Medical Plan 1. Open fractures of distal and middle phalanx of left ring finger Date of injury 02/10/2025 Patient is educated about this injury Patient is educated about the typical treatment course, which in the case of nondisplaced open fractures of the fingers, typically involves antibiotic therapy, immobilization, and close follow-up to ensure no signs or symptoms of infectione No further dressings indicated Patient should ranulfo tape the left ring and small fingers together to act as a moving splint 3-4 lb weight limit at this time Patient understands this in his amenable to this plan Follow-up in 4 weeks with repeat x-rays for reassessment, sooner with any acute concerns Orders: Orders XR hand LT min 3V Today M79.642 - Pain in left hand Coding Level of Care Code Global (24550) Diagnoses Open fracture of phalanx of left ring finger S62.605B
[2025-04-09 13:53] VITALS: BMI 27.4
--- OUTSIDE RECORDS SUMMARY | 2025-04-09 13:59 | XMS_ITS | Clinical Summary ---
Author Organization [address] [facility] Address [address] [place] [address] Phone Care Team Providers Care Renewals Manager Name Role Phone Janes Navarro MD Primary Care Provider [phone] Allergies No known active allergies Medications bisacodyL [...] capsule by mouth once daily 30 capsule 04/05/20 25 Active omeprazole (PriLOSEC) [address] capsule Take 1 capsule by mouth once daily 30 capsule 03/09/20 25 025 Discontinued Active Problems Problem Noted Date Diagnosed Date Gastroesophageal reflux disease without esophagi tis 10/02/2018 Vision abnormalities 10/02/2018 Bipolar affective disorder (CMS/HCC V24, CMS/HCC V28) 08/07/2018 Overview (04/23/2024): [facility] with [facility] Chronic hepatitis C without hepatic coma (CMS/HCC V24, CMS/HCC V28) 08/07/2018 Overview (04/23/2024): Chronic Hepatitis C, Genotype 1B. Treatment started 11/14/18 with Harvoni 90-40 mg tabs. Take 1 tab daily for 12 weeks. End date 02/06/19. SVR achieved 05/08/19 Immunizations Immunization Administration Dates Next Due Hepatitis A-Hepatitis B Adul t (Twinrix) 18yo and older 05/08/2019,12/12/2018,09/26/2018 Surgical History Surgery Date Site/Laterality Comments OTHER SURGICAL HISTORY PROCEDURE: [place] BIOPSY LIVER NEEDLE PERCUTANEOUS; COMMENT: in NASAL SEPTUM SURGERY PROCEDURE: [place] REPAIR NASAL SEPTAL PERFORATIONS OTHER SURGICAL HISTORY 03/25/2015 PROCEDURE: [place] ICAR CATH ABLATION DISCRETE MECHANISM ARRHYTHMIA; COMMENT: [...] ventricular tachycardia; COMMENT: S/p cardiac ablation at [facility] X 2, surgeon was Dr Medina Hepatitis C Dysphagia GERD (gastroesophageal reflux disease) Bipolar 2 disorder ([facility] V24, [facility] V28) Family History Medical History Relation Name Comments No Known Problems Father No Known Problems Mother Relation Name Status Comments Father Alive Mother Alive Social History Tobacco Use Types Packs/Day Years Used Date Smoking Tobacco: Never Smokeless Tobacco: Never Alcohol Use Standard Drinks/Week Comments No 0 (1 standard drink = 0.6 oz pur e alcohol) Interpersonal Safety Answer Date Record ed Physical Abuse Unrecognized value 06/02/2024 Verbal Abuse Unrecognized value 06/02/2024 Sex and Gender Information Value Date [...] 09/07/2024 2:58 PM EST Plan of Treatment Health Maintenance Due Date Last Done Comments [...] 08/27/2022 Colorectal Cancer Screening: Colonoscopy 06/02/2031 06/02/2024 RSV Immunization Adult Patients (1 - 1-dose 75+ series) 2047 HIV Screening Completed 08/27/2018 Hepatitis C Screening [...] LAB CHEMISTRY METHOD 07/17/2024 2:31 PM EST [facility] Triglycerides 232(H) 0 - 150 mg/dL LAB CHEMISTRY METHOD 07/17/2024 2:31 PM EST [facility] HDL 42 >=40 mg/dL LAB CHEMISTRY METHOD 07/17/2024 2:31 PM EST [facility] LDL Calculated 126(H) 0 - 100 mg/dL LAB CHEMISTRY METHOD 07/17/2024 2:31 PM EST [facility] VLDL Cholesterol Mark 46.4 mg/dL LAB CHEMISTRY METHOD 07/17/2024 2:31 PM EST [facility] Non HDL Chol. (LDL+VLDL) 172(H) <145 mg/dL LAB CHEMISTRY METHOD 07/17/2024 2:31 PM EST [facility] Chol/HDL Ratio 5.1(H) 0.0 - 4.4 LAB CHEMISTRY METHOD 07/17/2024 2:31 PM EST [facility] Blood Venous blood specimen / Unknown Venipuncture / Unknown 07/17/2024 10:35 AM EST 07/17/2024 10:35 AM EST us Eder Ron MD LAB BLOOD ORDERABLES Final R esult [facility] [address] [place] [address], * COLONOSCOPY Anesthesia - [facility]; [facility] ENDOSCOPY (06/02/2024 2:36 PM EST) Anatomical [...] results. Narrative 06/02/2024 2:36 PM EST [facility] GI Patient Name: Good Kim Procedure Date: 06/02/2024 2:11 PM Date of : 1970 Age: 54 Gender: Male Note Status: Finalized Attending MD: Shannon Flores DO, [id number] Procedure Date No Time: 06/02/2024 Procedure: Colonoscopy [...] the physician, the nurse, the anesthesiologist, the final inspector and tester and the air quality technician in the pre-procedure area in the [...] the physician, the nurse, the anesthesiologist, the final inspector and tester and the air quality technician in the pre-procedure area in the [...] retroflexion views. Procedure Code(s): --- Professional --- 36440, Colonoscopy, flexible; with removal of tumor(s), polyp(s), or other lesion(s) by snare technique Diagnosis Code(s): --- Professional --- Z12.11, Encounter for screening for malignant neoplasm of colon D12.4, Benign neoplasm of descending colon CPT copyright 2020 [employer]. All rights reserved. The codes documented in this report are preliminary and upon cotton classer review may be revised to meet current compliance requirements. SHANNON Flores DO 06/02/2024 2:36:33 PM This report has been signed electronically.Shannon Flores DO Number of Addenda: 0 Note Initiated On: 06/02/2024 2:11 PM Scope Withdrawal Time: 0 hours 6 minutes 12 seconds Scope In: 2:25:23 PM Scope Out: 2:35:02 PM Endoscopy Department at [facility] - [address] [place] [id number] Procedure Note Shannon Flores DO - 06/02/2024 [facility] GI Patient Name: Good Kim Procedure Date: 06/02/2024 2:11 PM Date of : 1970 Age: 54 Gender: Male Note Status: Finalized Attending MD: Shannon Flores DO, [id number] Procedure Date No Time: 06/02/2024 Procedure: Colonoscopy [...] the physician, the nurse, the anesthesiologist, the final inspector and tester and thetechnician in the pre-procedure area in [...] the physician, the nurse, the anesthesiologist, the final inspector and tester and thetechnician in the pre-procedure area in [...] retroflexion views. Procedure Code(s): --- Professional --- 49624, Colonoscopy, flexible; with removal of tumor(s), polyp(s), or other lesion(s) by snare technique Diagnosis Code(s): --- Professional --- Z12.11, Encounter for screening for malignantneoplasm of colon D12.4, Benign neoplasm of descending colon CPT copyright 2020 [employer]. All rights reserved. The codes documented in this report are preliminary and upon cotton classer reviewmay be revised to meet current compliance requirements. SHANNON Flores DO 06/02/2024 2:36:33 PM This report has been signed electronically.Shannon Flores DO Number of Addenda: 0 Note Initiated On: 06/02/2024 2:11 PM Scope Withdrawal Time: 0 hours 6 minutes 12 seconds Scope In: 2:25:23 PM Scope Out: 2:35:02 PM Endoscopy Department at [facility] - [address] [place] [id number] IMPRESSION: - One 5 mm polyp in [...] to Health Maintenance Insurance [employer] Care Teams Renewals Manager Relationship Specialty Start Date End Date Janes Navarro MD [address] [place] [address] [address] [place] [address] PCP - General Internal Medicine 07/11/18
--- OUTSIDE RECORDS SUMMARY | 2025-04-09 13:59 | XMS_ITS | Patient Health Record ---
Author Organization [facility] [address] Address [address] [place] [address] Care Team Providers Care Automotive Service Cashier Name Role Phone [place] URIARTE Unavailable [phone] Allergies No Known Allergies Reason For Referral No Information Medications Medication SIG (Take, Route, Frequency, Duration) Notes Start Date End Date Status lamoTRIgine 100 MG Oral; Duration: 30 Days Active buPROPion HCl ER (XL) 300 MG Oral; Duration: 30 Days Acti ve Lurasidone HCl 40 MG Oral; Duration: 30 Days Active Nystatin-Triamcinolone 371547-0.1 UNIT/GM APPLY CREAM EXTERNALLY TO AFFECTED AREA [...] Status Risk Notes Problem Vitamin D deficiency (97583545) Vitamin D deficiency, unspecified (E55.9) Active confirmed Problem Hyperlipidaemia (76619670) Hyperlipidemia, unspecified hyperlipidemia type (E78.5) Active confirmed Problem Hypothyroidism (04869314) Hypothyroidism, unspecified type (E03.9) Active confirmed Problem Atrial fibrillation (23555985) PAF (paroxysmal atrial fibrillation) (I48.0) Active confirmed [...] Date Coverage End Date [employer] [address] [place] [address] [id number] Good Kim Self - patient is the insured 2 Medical (General) History Medical History History ICD Code bipolar disorder hepatitis C
== END 2025-04-09 14:48 | disposition home or self-care (01) ==
LOC: HO.HOS 13:49
DX: S62.605B Fracture of unspecified phalanx of left ring finger, initial encounter for open fracture (principal)
CPT/HCPCS: 99213

== ENCOUNTER 2025-04-09 13:49 | Outpatient (REF) | payer OTHER, SELFPAY ==
--- NOTE | ~2025-04-09 | XR_ITS ---
EXAMINATION: XR HAND, LEFT CLINICAL INFORMATION: M79.642 - Pain in left hand COMPARISON: None available. TECHNIQUE: PA, lateral, and oblique views of the left hand. FINDINGS: There is redemonstration of a comminuted fracture of the distal tuft of the fourth digit distal phalanx. There has been resorption of several of the calcific densities abutting the fracture. Fracture lines are somewhat less distinct, indicating healing. There is a similar appearance of an erosion along the ulnar aspect of the fourth middle phalanx. There is similar soft tissue swelling of the distal fourth digit. XR/XR hand LT min 3V IMPRESSION: 1. Healing tuft fracture of the distal phalanx of the fourth digit. Several of the abutting soft tissue calcific densities have resorbed. 2. Similar erosion along the ulnar aspect of the fourth middle phalanx. Electronically signed by: Ruddy Kang MD 04/09/2025 02:49 PM EDT
== END 2025-04-09 13:50 | disposition home or self-care (01) ==
LOC: HO.HOSX 13:49
DX: S62.66 Nondisplaced fracture of distal phalanx of finger (principal); X58.XXXD Exposure to other specified factors, subsequent encounter
CPT/HCPCS: 73130

== ENCOUNTER → 2025-04-09 14:27 | Outpatient (BNV) | payer OTHER, SELFPAY | PROVIDERS: Visit Provider Radiology Diagnostic Radiology | DX: S62.635D Displaced fracture of distal phalanx of left ring finger, subsequent encounter for fracture with routine healing (principal) | CPT/HCPCS: 73130 ==

== ENCOUNTER 2025-05-10 12:58 | Outpatient (AMB) | payer OTHER, SELFPAY ==
[2025-05-10 13:11] VITALS: BMI 27.4
--- NOTE | 2025-05-10 13:11 | A.OFFVIS_ITS ---
Vital Signs 05/10/25 13:11 Height 5 ft 6 in Weight 170 lb BMI 27.4 Intake Visit Reasons: OV- LT RF laceration, DOI: 02/09/25-F/U with AA Intake Note: Good is a 55 year old right hand dominant male who presents today for follow up status post Left Ring Finger Distal and Middle Phalanx Fracture, DOI: 02/09/25. At his last visit he was advised to ranulfo tape the left ring and small fingers together to act as a moving splint and to remain at a 3-4 lb weight limit. States he has D.C ranulfo tape, no pain, just has numbness from his DIP to PIP, and his sensation feels off. Patient also mentioned he will need a work clearance before returning to work. Allergies No Known Allergies Allergy (Verified 05/10/25 13:24) HPI HPI OV- LT RF laceration, DOI: 02/09/25-F/U with AA: Details: Good is a 55 year old right hand dominant male who presents today for follow up status post Left Ring Finger Distal and Middle Phalanx Fracture, DOI: 02/09/25. At his last visit he was advised to ranulfo tape the left ring and small fingers together to act as a moving splint and to remain at a 3-4 lb weight limit. States he has D.C ranulfo tape, no pain, just has numbness from his DIP to PIP, and his sensation feels off. Patient also mentioned he will need a work clearance before returning to work. Patient reports that he knows that it is likely he will not get normal sensation back, but he does just want to make us aware. 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 Neuro: Normal sensation of the tips of all digits of the left hand at this time Vascular: Cap refill brisk Pain: No further Tenderness to palpation noted of the distal phalanx and the distal aspect of the middle phalanx of the left ring finger in the area of laceration ROM: Patient is able to flex and extend at all joints of the left hand, particularly of the left ring finger Skin: There is a large, approximately 7-8 cm in length laceration noted of the ulnar aspect of the left ring finger extending into the tip of the left ring finger, this is healed quite well No evidence of infection General: No ecchymosis, erythema, or evidence of infection. Psych: Appears grossly normal Affect normal Attitude cooperative Assessment & Plan Assessment & Plan (1) Open fracture of phalanx of left ring finger: Code(s): S62.605B - Fracture of unspecified phalanx of left ring finger, initial encounter for open fracture Category: Medical Plan 1. Open fractures of distal and middle phalanx of left ring finger Date of injury 02/10/2025 Patient is educated about this injury Patient appears to be recovering quite well No further dressings indicated I do not feel he requires any ranulfo taping moving forward Patient may gradually return back to full normal lifting over the next 3-4 weeks Patient understands this in his amenable to this plan Return to work full duty 05/11/2025 Follow-up as needed Coding Level of Care Code Global (58211) Diagnoses Open fracture of phalanx of left ring finger S62.605B
== END 2025-05-10 13:41 | disposition home or self-care (01) ==
LOC: HO.HOS 12:59
DX: S62.605B Fracture of unspecified phalanx of left ring finger, initial encounter for open fracture (principal)
CPT/HCPCS: 99024